=== PATIENT | female | born 1930 | race Caucasian/White ===

== ENCOUNTER 2018-01-04 10:19 | Outpatient (CLI) | payer OTHER, BC ==
[2018-01-04] MEDS ORDERED: DOBUTamine 500 MG in D5W 250 ML IV ONE (11:00)
[2018-01-04] MEDS ORDERED: NS 1,000 ML IV ONE (11:00)
--- NOTE | 2018-01-04 12:25 | ECHO ---
[email or web address] [address] [address] Main: [phone] Fax: Transthoracic Echocardiogram Name: HIRO STEPHENS MR#: [id number] Study Date: 01/04/2018 Study Time: 11:17 AM Date of : 1930 Age: 87 year(s) Height: 168 cm (66.14 in.) Weight: 73 kg (160.94 lb.) BSA: 1.83 m2 Gender: Female Examination: DSE Indication: Eval aortic stenosis Image Quality: Contrast: Requested by: Ruben Martinez BP: 123 mmHg/70 mmHg Heart Rate: Rhythm: Indication: Eval aortic stenosis Procedure Staff Track Repairer: Ivonne Bustamante RDCS Reading Physician: Ruben Martinez MD Requesting Provider: Conclusions: This is a modified dobutamine stress echo. Baseline - AV max PG 38mmHG AV mean PG 21mmHG. NA .87 cm2. End of 20 MCG - AV max PG 67mmHG AV mean PG 38mmHG. Test was terminated at the beginning of 30 MCG. Baseline ECG NSR--increase in HR from 60 bpm to 84 bpm with infusion. No ST changes or CP during test. . Measurements: Chambers Valvular Assessment AV/MV Valvular Assessment TV/PV Normal Normal Normal Name Value Range Name Value Range Name Value Range LVOTd 1.9 cm 1.9 cm mm AV meanP mmHg ( - ) NA (VTI): 0.8 cm ( - ) Continued Measurements: Findings: Exam Comments: This is a modified dobutamine stress echo. Baseline - AV max PG 38mmHG AV mean PG 21mmHG. NA .87 cm2. End of 20 MCG - AV max PG 67mmHG AV mean PG 38mmHG. Test was terminated at the beginning of 30 MCG. Baseline ECG NSR--increase in HR from 60 bpm to 84 bpm with infusion. No ST changes or CP during test. . (No Signature Object) Patient: HIRO STEPHENS Study Date: 01/04/2018 Page 1 of 1 11:17 AM [id number]
== END 2018-01-04 13:18 | disposition home or self-care (01) ==
LOC: FCATH 10:19
PROVIDERS: ATTEND Internal Medicine Cardiovascular Disease
DX: I35.0 Nonrheumatic aortic (valve) stenosis (principal); I10 Essential (primary) hypertension
CPT/HCPCS: 93351; J1250

== ENCOUNTER 2018-01-10 10:06 | Day surgery (SDC) | payer OTHER, BC ==
[2018-01-10] MEDS ORDERED: DIAZEPAM 5 MG TAB PO ONE (10:08)
[2018-01-10] MEDS ORDERED: NS 1,000 ML IV ONE (10:08)
[2018-01-10] MEDS ORDERED: diphenhydrAMINE 25 MG CAP PO ONE (10:08)
[2018-01-10] MEDS ORDERED: FAMOTIDINE 20 MG TAB PO ONE (10:08)
[2018-01-10] MEDS ORDERED: ASPIRIN EC 325 MG TAB PO ONE (10:08)
[2018-01-10] MEDS ORDERED: CLOPIDOGREL BISULFATE 75 MG TAB PO ONE (11:00)
--- NOTE | 2018-01-10 11:01 | PDHPUP ---
History & Physical Update H&P update statement: This history and physical update is based on an assessment of the patient which was completed after admission or registration (within 24 hours), but prior to the surgery/procedure. H&P update: H&P reviewed & patient examined, no change in patient's condition since H&P completed
--- NOTE | 2018-01-10 11:01 | PDPROPOC ---
Sedation Plan of Care Sedation Plan of Care: mental status noted, patient educated of risks, benefits , alternatives, patient can tolerate sedation ASA Classification: ASA 2 Planned drugs: fentanyl, midazolam Mallampati Score: Class 2 Mallampati Reference Image: Patient passed 3-3-2 rule?: Yes
[2018-01-10 11:14] LABS: PLATELET COUNT 291 10^3/uL (150-400)
[2018-01-10 11:15] LABS: INR 0.97 (0.83-1.16); PROTIME(PATIENT) 13.1 SEC (12.0-15.0)
--- NOTE | 2018-01-10 11:17 | GCON ---
DATE OF CONSULTATION: 01/10/2018 REFERRING PHYSICIAN: Ruben Martinez MD The patient is seen at the request of Dr. Martinez with the patient's permission. IMPRESSION: 1. Critical symptomatic aortic stenosis. 2. Mild dementia. 3. Frailty. 4. Hypothyroidism. 5. Hyperlipidemia. 6. Obesity. 7. Osteopenia. RECOMMENDATIONS: This patient would be better served with TAVR given her age and comorbidities. I d o think she would have a difficult time recovering from surgical intervention due to her age, frail n ature, and mild memory loss, which would be markedly worsened in the perioperative period. I did dis cuss with the family that in the rare circumstances that a catastrophic event occurs during TAVR plac ement that the resolution is often cardiopulmonary bypass and often times sternotomy with repair and replacement of the disruption and valve replacement. They are uncertain whether they would allow roman t and would discuss it and let us know prior to intervention. CHIEF COMPLAINT: Worsening shortness of breath. HISTORY OF PRESENT ILLNESS: This very pleasant 87-year-old female presents with worsening dyspnea on exertion to the point that she is incapable of participating in any family functions, including walk ing or shopping with her daughter. This began at least a year ago and has progressed most recently t o the point that she is extremely limited with any activity. PAST MEDICAL HISTORY: As stated. PAST SURGICAL HISTORY: Surgeries, include cervical fusion and wisdom teeth removal. MEDICATIONS: Aspirin, calcium, Cytomel, fluoxetine, hydrochlorothiazide, lithium carbonate, magnesiu m glycinate, memantine, Synthroid, and vitamin D. ALLERGIES: Sulfa, no action listed. FAMILY HISTORY: Noncontributory. SOCIAL HISTORY: She has no significant known lung disease and only smoked up until her 20s at which time, she discontinued. DATA: Pulmonary function studies from outside were reviewed with an FEV1 of 63%. PHYSICAL EXAMINATION: GENERAL: This is a mildly overweight elderly female accompanied by her daught er. Very pleasant or oriented to person, place, and time. HEENT: Normocephalic. ALEXANDER. NECK: Ca rotid have soft bruits bilaterally which are transmitted. HEART: Regular with a murmur of aortic st enosis. LUNGS: Clear. ABDOMEN: Soft, nontender. Bowel sounds are active. EXTREMITIES: Femoral pulses are 2+. She has no edema. No varicosities. /[id number]/MODL
[2018-01-10] MEDS ORDERED: MIDAZOLAM 2 MG/2 ML VIAL ONE (12:42)
[2018-01-10] MEDS ORDERED: fentaNYL 100 MCG/2 ML INJ ONE (12:42)
[2018-01-10] MEDS ORDERED: LIDOCAINE 1% 300 MG/30 ML SDV ONE (12:42)
[2018-01-10] MEDS ORDERED: IOPAMIDOL (ISOVUE-370) 150 ML BTL IV ONE (12:43)
[2018-01-10] MEDS ORDERED: HYDROCODONE/APAP 5/325 TAB PO PRN (13:50)
[2018-01-10] MEDS ORDERED: NITROGLYCERIN 0.4 MG BTL SL PRN (13:50)
[2018-01-10] MEDS ORDERED: ATROPINE SULFATE 1 MG/10 ML SYR IVP PRN (13:50)
[2018-01-10] MEDS ORDERED: ONDANSETRON 4 MG/2 ML VIAL IVP PRN (13:50)
[2018-01-10] MEDS ORDERED: OXYCODONE/APAP 5/325 TAB PO PRN (13:50)
--- NOTE | 2018-01-10 15:38 | CPIP ---
DATE OF PROCEDURE: 01/10/2018 INDICATION FOR PROCEDURE: Critical aortic stenosis. Preoperative TAVR. PROCEDURE: 1. left groin sheathogram. 2. 7-[place] sheath left common femoral vein. 3. Right heart catheterization with [place] catheter. 4. Bilateral coronary angiography. 5. Left heart catheterization. 6. Left . 7. Abdominal aortogram. Briefly, this is an 87-year-old female with history of worsening shortness of breath, lightheadedness . The patient had noninvasive evidence of high-grade aortic stenosis. The patient's aortic valve ar ea was measured to be approximately 0.8 cm2 . However, her gradients were only moderate. She underw ent dobutamine stress echo which clearly showed increase in her gradient across the valve to a peak v elocity of over 4.0. Given these findings, patient consented for right and left heart catheterizatio n in anticipation for eventual TAVR. She has seen Dr. Desean Eason from CT surgery who deemed her to be a suitable candidate for TAVR and a high-risk candidate for open heart surgery. DESCRIPTION OF PROCEDURE: After informed consent was obtained, the patient was brought to [facility] where the left groin was prepped and draped in sterile fashion. Using lidocaine, a short 6-[place] sheath l eft common femoral vein. A 6-[place]imbabwe[place] sheath left common femoral artery verified angiographically. Th rough the 7-[place] sheath a [place] catheter was advanced. Wedge pressure was mean of 15, A-wave 1 7, V-wave 17, PA pressure systolic 20, diastolic 16, mean of 21. RV pressure systolic 34, diastolic 3, end of 11. RA pressure mean of 7, A-wave 10, V-wave 8. Cardiac output by Marisa was measured to be 3.5 with index of 1.9, indicating low output. AO sat was 99%. PA sat was 76%. [place] catheter was then removed. A JL4 catheter was advanced to the left coronary artery. With the JL4 catheter im ages of the left coronary artery revealed . Angiography of the left coronary artery showed long left main, serpiginous takeoff of the circumflex and LAD. The LAD did not have any significant disease. New to the circumflex artery, which was serpiginous as well, did not have any significant disease. There was a small to medium diagonal coming off the LAD which was healthy and free of disea se. There were small marginal arteries coming off the circumflex proper, which were healthy and free of disease. obtained the JL4 catheter was removed. The JR4 catheter was advanced to the right coronary artery. Images of the right coronary artery revealed mild plaque 20% to 30% in the proximal RCA. Distally, the appeared to be widely patent and free of disease. After ____ obtained, the JR4 catheter was removed. The pigtail catheter was then advanced and with some excessive manipulation this was successful in entering the LV. Of note, there was an approximately 4 0 mm gradient from the LV aorta. Left ventriculogram obtained in the showed EF of 60% with no wall motion abnormalities. There was approximately a 40 mm gradient pullback from th e LV to the aorta. The pigtail catheter was pulled back to the descending aorta where abdominal aort ogram was obtained which showed widely patent distal ascending aorta, widely patent bilateral common external and internal iliac arteries and widely patent bilateral CFAs. At this time the pigtail cath eter removed wire. groin was closed with Angio-Seal and left femoral vein was closed with manual pressure. Patient tolerated the procedure well with no complications. IMPRESSION: 1. Mild nonobstructive bilateral coronary artery disease. 2. Normal pulmonic pressures. 3. Reduced cardiac output. 4. Significant gradient across the aortic valve indicating underlying stenosis. 5. Widely patent aortoiliac conduit. PLAN: The patient will have 3 hours bed rest, obtain CT of the chest, abdomen and pelvis today, as w ell as carotid ultrasound. Follow up in the office in 1 weeks' time to discuss future movement ishan dietz obtaining a TAVR in the future. /[id number]/MODL
[2018-01-10] MEDS ORDERED: IOPAMIDOL (ISOVUE 370) 100 ML BTL IV ONE (16:33)
--- NOTE | 2018-01-11 08:39 | CPEKG ---
Test Reason : OPEN Blood Pressure : / mmHG Vent. Rate : 065 BPM Atrial Rate : 066 BPM P-R Int : 160 ms QRS Dur : 083 ms QT Int : 452 ms P-R-T Axes : 079 036 077 degrees QTc Int : [address] depr, anterior leads probable artifact Confirmed by Chaim Escalona ([id number]) on 01/11/2018 8:38:57 AM Referred By: Confirmed By:Chaim Escalona
== END 2018-01-10 17:30 | disposition home or self-care (01) ==
LOC: FCATH 10:06
PROVIDERS: ATTEND Internal Medicine Cardiovascular Disease
PROC: B2151ZZ Fluoroscopy of Left Heart using Low Osmolar Contrast (ICD-10-PCS; principal; 2018-01-10)
PROC: 4A023N8 Measurement of Cardiac Sampling and Pressure, Bilateral, Percutaneous Approach (ICD-10-PCS; principal; 2018-01-10)
PROC: B2111ZZ Fluoroscopy of Multiple Coronary Arteries using Low Osmolar Contrast (ICD-10-PCS; principal; 2018-01-10)
PROC: B4101ZZ Fluoroscopy of Abdominal Aorta using Low Osmolar Contrast (ICD-10-PCS; principal; 2018-01-10)
DX: I35.0 Nonrheumatic aortic (valve) stenosis (principal); I10 Essential (primary) hypertension; F03.90 Unspecified dementia, unspecified severity, without behavioral disturbance, psychotic disturbance, mood disturbance, and anxiety; E78.5 Hyperlipidemia, unspecified; E03.9 Hypothyroidism, unspecified; E66.9 Obesity, unspecified; M85.89 Other specified disorders of bone density and structure, multiple sites; Z82.49 Family history of ischemic heart disease and other diseases of the circulatory system; Z98.1 Arthrodesis status
CPT/HCPCS: C1760; J1644; J2250; J3010; Q9967

== ENCOUNTER 2018-02-07 06:12 | Inpatient (IN) | payer OTHER, BC ==
[2018-02-07] MEDS ORDERED: PROPOFOL/EMULSION 500 MG/50 ML BOTTLE IV ONE (06:58)
[2018-02-07] MEDS ORDERED: LIDOCAINE 1% 300 MG/30 ML SDV ONE (07:00)
[2018-02-07] MEDS ORDERED: fentaNYL 100 MCG/2 ML INJ ONE ×2 (07:00→07:27)
[2018-02-07] MEDS ORDERED: IOPAMIDOL (ISOVUE-370) 150 ML BTL IV ONE (07:00)
[2018-02-07] MEDS ORDERED: ceFAZolin 2 GM/DEXTROSE 100 ML IV ONE (07:00)
[2018-02-07] MEDS ORDERED: DEXMEDETOMIDINE HCL 400 MCG in NS 100 ML IV ONE (07:30)
[2018-02-07] MEDS ORDERED: PROTAMINE SULFATE 50 MG/5 ML VIAL IVP ONE (09:02)
[2018-02-07] MEDS ORDERED: ePHEDrine SULFATE 25 MG/5 ML SYR ONE (09:04)
[2018-02-07] MEDS ORDERED: PHENYLEPHRINE HCL 100 MCG/ML SYR ONE (09:04)
--- NOTE | 2018-02-07 09:20 | PDPROPOC ---
Sedation Plan of Care Sedation Plan of Care: mental status noted, patient educated of risks, benefits , alternatives, patient can tolerate sedation ASA Classification: ASA 2 Planned drugs: other Mallampati Score: Class 2 Mallampati Reference Image: Patient passed 3-3-2 rule?: Yes
[2018-02-07] MEDS ORDERED: hydrALAZINE 20 MG/ML VIAL IVP PRN (09:22)
[2018-02-07] MEDS ORDERED: ONDANSETRON 4 MG/2 ML VIAL IVP PRN (09:22)
[2018-02-07] MEDS ORDERED: oxyCODONE IR 5 MG TAB PO PRN (09:22)
[2018-02-07] MEDS ORDERED: ATROPINE SULFATE 1 MG/10 ML SYR IVP PRN (09:22)
[2018-02-07] MEDS ORDERED: HYDROmorphONE/DILAUDID 1 MG/ML INJ IVP PRN (09:22)
[2018-02-07] MEDS ORDERED: IBUPROFEN 800 MG TAB PO PRN (09:22)
[2018-02-07] MEDS ORDERED: ONDANSETRON DISINTEGRATING 4 MG TAB PO PRN (09:22)
[2018-02-07] MEDS ORDERED: ALBUTEROL 60 PUFFS/8 GM MDI IH PRN (09:23)
--- NOTE | 2018-02-07 09:41 | PDANEPAE ---
ANE History of Present Illness pr op note done earlier but not saved 87 yo for tavr ANE Past Medical History - Cardiovascular History Hx Hypertension: Yes Hx Arrhythmias: Yes Hx Chest Pain: No Hx Coronary Artery / Peripheral Vascular Disease: No Hx CHF / Valvular Disease: Yes Hx Palpitations: No - Pulmonary History Hx COPD: No Hx Asthma/Reactive Airway Disease: No Hx Recent Upper Respiratory Infection: No Hx Oxygen in Use at Home: No Hx Sleep Apnea: No - Endocrine History Hx Diabetes: No - Chronic Pain History Chronic Pain: No ANE Review of Systems Review of Systems: - Exercise capacity METS (RN): 2 METS ANE Patient History - Allergies Allergies/Adverse Reactions: Sulfa (Sulfonamide Antibiotics) Allergy (Verified 01/13/14 22:37) - Home Medications Home medications: home medication list seen and reviewed Home Medications: Aspirin [Aspirin 81mg (*)] 81 mg PO DAILY@12 03/14/14 [Last Taken 01/03/18 12:00 ] Levothyroxine [Synthroid 50 mcg (*)] 50 mcg PO DAILY 03/14/14 [Last Taken 08:00] Liothyronine Sodium [Cytomel 5 mcg (*)] 5 mcg PO DAILY 03/14/14 [Last Taken 08/18 08:00] FLUoxetine [Prozac 10 MG (*)] 10 mg PO DAILY@01/04/18 [Last Taken 01/03/18 12 :00] Herbals/Supplements -Info Only 1 ea PO DAILY 01/04/18 [Last Taken 01/03/18 20:00 ] Hydrochlorothiazide [HCTZ (*)] 12.5 mg PO DAILY@12 01/04/18 [Last Taken 12:00] [place] Carbonate 150 mg PO HS 01/04/18 [Last Taken 01/03/18 20:00] Memantine HCl [Memantine HCl ER] 14 mg PO HS 01/04/18 [Last Taken 01/03/18 20:00 ] Methenamine Mandelate [METHENAMINE MANDELATE] 500 mg PO BID@,01/04/18 [ Last Taken 01/03/18 20:00] Albuterol [Proventil Inhaler HFA (*)] 1 puffs IH DAILY PRN 02/02/18 [Last Taken Unknown] Cholecalciferol Vit D3 [Vitamin D3 (*)] 1,000 units PO DAILY@02/02/18 [Last Taken Unknown] FLUoxetine [Prozac 20 MG (*)] 20 mg PO DAILY@02/02/18 [Last Taken Unknown] - NPO status NPO Status: no food or drink >8 hours - Smoking Hx Smoking Status: Former smoker ANE Labs/Vital Signs - Vital Signs Height: 5 ft 4.96 in Weight: 72.6 kg ANE Physical Exam - Airway Mallampati Score: Class 2 Mouth exam: normal dental/mouth exam - Pulmonary Pulmonary: no respiratory distress - Cardiovascular Cardiovascular: regular rate and rhythym - ASA Status ASA Status: III ANE Anesthesia Plan Anesthesia Plan: MAC Lines/Monitors: central line
--- NOTE | 2018-02-07 10:31 | CPIP ---
DATE OF PROCEDURE: 02/07/2018 INDICATION FOR PROCEDURE: Severe symptomatic aortic stenosis. CO-SURGEONS: Dr. Desean Eason, Dr. Jerry Sellers, Dr. Deborah Whatley. PROCEDURES: 1. Nonselective left groin sheathogram. 2. Nonselective right groin sheathogram. 3. Upsizing 6-[place] sheath to a 16-[place] Medtronic sheath. 4. Aortic root angiography. 5. Left heart catheterization. 6. Placement of Medtronic CoreValve Evolut Pro 26 mm valve by the transfemoral. Briefly, this is an 87-year-old female with history of critical symptomatic aortic stenosi s deemed suitable for TAVR by [address] surgeons. Patient did undergo dobutamine stress echo as the patient did have evidence of low output low gradient severe . DESCRIPTION OF PROCEDURE: After informed consent was obtained, the patient was brought to [facility] where the patient underwent MAC anesthesia. The patient had an IJ temporary pacemaker line placed. The sh eath was placed in the right common femoral artery verified angiographically. Sheath placed in the l eft common femoral artery verified angiographically. The sheath in the right groin was upsized to a 16-[place] central sheath after placement of double Perclose placements and a Lunderquist wire placed in the descending aorta. The valve was crossed catheter straight stiff Glidewire and swit ched out for a pigtail catheter. Of note, the patient did have transient ST elevations once the pigt ail did cross the LV, most likely from entrained air in the catheter. This normalized after 2 minute s with no clinical sequela. wire was placed in the LV. Patient administered a total of 1 0,000 of heparin. A pigtail catheter was placed from the left groin to the left coronary cusp. We t hen proceeded with placement of a Medtronic CoreValve Evolut Pro 26 mm valve via the transfemoral rou te. This was placed successfully. Post deployment, there was trivial perivalvular leak noted with e xcellent hemodynamics. The wire was then removed. The pigtail catheter was removed. The right groi n was closed with double Perclose, left groin closed with 8-[place]izen [place] Angio-Seal. The patient tolerated the procedure well with no complications. IMPRESSION: Successful placement of Medtronic Evolut Pro 26 mm valve via the transfemoral route. PLAN: The patient will be admitted to PCU. Further orders following clinical course. The temporary pacemaker wire will be removed in approximately 3 hours' time if no pacing is required. /[id number]/MODL
[2018-02-07] MEDS: ACETAMINOPHEN 325 MG TAB PO SCH ×3 (14:13→23:10)
[2018-02-07] MEDS: METHENAMINE HIPP 1 GM TAB PO SCH ×2 (14:14→20:31)
[2018-02-07] MEDS: ASPIRIN 81 MG CHEWABLE TAB PO SCH (14:14)
[2018-02-07] MEDS: HYDROCHLOROTHIAZIDE 12.5 MG CAP PO SCH (14:14)
[2018-02-07] MEDS: FLUoxetine 10 MG CAP PO SCH (14:15)
[2018-02-07] MEDS: CHOLECALCIFEROL VIT D3 1,000 UNITS TAB PO SCH (14:15)
[2018-02-07] MEDS: FLUoxetine 20 MG CAP PO SCH (14:15)
[2018-02-07] MEDS: LITHIUM CARBONATE 300 MG TAB PO SCH ×2 (14:17→20:30)
--- NOTE | 2018-02-07 14:40 | POSTANESTH ---
Post Anesthetic Evaluation Cardiovascular Status: Other, See Comment Respiratory Status: Normal, Stable Level of Consciousness/Mental Status: Can Participate in Eval Pain Control: Adequate, Prn Tx Ordered Nausea/Vomiting Control: Adequate, Prn Tx Ordered Complications Possibly Related to Anesthesia: None Noted (third degree hrt blk, awaiting pacemaker)
--- NOTE | 2018-02-07 18:18 | ECHO ---
[email or web address] [address] [address] Main: [phone] Fax: Transthoracic Echocardiogram Name: HIRO STEPHENS MR#: [id number] Study Date: 02/07/2018 Study Time: 06:53 AM Date of : 1930 Age: 87 year(s) Height: 167.6 cm (66 in.) Weight: 81.65 kg (180 lb.) BSA: 1.91 m2 Gender: Female Examination: Limited Echo Indication: limited TTE during TAVR procedure Image Quality: Adequate Contrast: Requested by: Ruben Martinez BP: 147 mmHg/75 mmHg Heart Rate: Rhythm: Indication: limited TTE during TAVR procedure Procedure Staff Hander In: Leila Cid [facility] Reading Physician: Deborah Whatley MD Requesting Provider: Ruben Martinez Conclusions: Normal global systolic LV function. No regional wall motion abnormality. Successful TAVR implantation with a normal device position trivial to mild residual aortic regurgitation no pericardial effusion. Measurements: Chambers Valvular Assessment AV/MV Valvular Assessment TV/PV Normal Normal Normal Name Value Range Name Value Range Name Value Range LVOTd 1.9 cm 1.9 cm mm Continued Measurements: Findings: Left Ventricle: Normal global systolic LV function. No regional wall motion abnormality. Exam Comments: Pre TAVR AV 3.1 m/s 23mmHg mean NDSI = .30 NA=.88 Triv- Mild AI, MOD MR, no pericardial effusion Post TAVR AV 1.1m/s 3mmHg mean NDSI = .80 NA 2.3 Triv-mild AI, mild-mod MR no pericardial effusion. (No Signature Object) Patient: HIRO STEPHENS Study Date: 02/07/2018 Page 1 of 1 06:53 AM [id number]
[2018-02-07] MEDS: MEMANTINE HCL 14 MG PO SCH (20:36)
--- NOTE | 2018-02-08 05:08 | PDMN ---
Medical Necessity Medical necessity: [place] IP only, TAVR; [facility] S1320 Aortic Valve Replacement
[2018-02-08] MEDS: ACETAMINOPHEN 325 MG TAB PO SCH ×3 (05:16→18:46)
[2018-02-08 05:42] LABS: PLATELET COUNT 187 10^3/uL (150-400)
[2018-02-08 05:50] LABS: INR 0.96 (0.83-1.16)
--- NOTE | 2018-02-08 07:06 | PDCARPN ---
Cardiology Progress Note Chief Complaint: SOB Assessment/Plan: Assessment: s/p TAVR Plan: 02/08/18 07:06 doing well transfer to PCU OOB IS check echo Subjective: doing well Reviewed/Discussed With: multidisciplinary team Time Spent with Patient: greater than 25 minutes Time Spent with Patient: Greater than 25 minutes spent on this patients care, greater than 50% of time spent counseling, educating, and coordinating care regarding the above mentioned plan. Objective: Vital Signs (8 Hrs) Temp Pulse Resp BP Pulse Ox 02/08/18 04:00 36.7 C 72 16 151/45 H 94 02/07/18 23:15 36.9 C 78 18 137/49 H 96 Intake/Output (24 Hrs) 02/07/18 02/08/18 02/09/18 05:59 05:59 05:59 Intake Total 1700 Output Total 1200 Balance 500 Intake: Oral (ml) 1000 IV Intake (ml) 700 Output: Urine (ml) 1200 Bedside Commode 600 Toilet 600 Other: Weight 72.6 kg Intake Quantity Yes Sufficient Number of Voids Toilet 3 Number of Stools Toilet 1 Result Diagrams: 02/08/18 05:30 02/08/18 05:30 - Physical Exam Constitutional: healthy appearing Eyes: PERRL Ears, Nose, Mouth, Throat: moist mucous membranes Cardiovascular: regular rate and rhythm Peripheral Pulses: 1+: femoral (R), femoral (L) Respiratory: clear to auscultate bilat Gastrointestinal: normoactive bowel sounds Genitourinary: no suprapubic tenderness Skin: no rashes Musculoskeletal: no muscular tenderness Neurologic: AAOx3 ICD10 Worksheet Patient Problems: Problems Problem Status Onset Vaginal prolapse Acute
[2018-02-08] MEDS: LIOTHYRONINE SODIUM 5 MCG TAB PO SCH (08:55)
[2018-02-08] MEDS: LEVOTHYROXINE 50 MCG TAB PO SCH (08:55)
[2018-02-08] MEDS ORDERED: Herbals/Supplements -Info Only PO SCH (09:00)
--- NOTE | 2018-02-08 09:34 | ASMTCMCOM ---
CM Note CM Note Notes: 87yr old female admitted for Aortic stenosis, Dizziness, Dyspnea, HTN, Dementia. She has a Hx of Situational depression. Patient had a TAVR procedure. Patient lives with her daughter. CM not anticipating that patient will have discharge needs. Date Signed: 02/08/2018 09:33 AM Electronically Signed By:Fabi Mcmahon LCSW
--- NOTE | 2018-02-08 12:50 | ECHO ---
[email or web address] [address] [address] Main: [phone] Fax: Transthoracic Echocardiogram Name: HIRO STEPHENS MR#: [id number] Study Date: 02/08/2018 Study Time: 07:39 AM Date of : 1930 Age: 87 year(s) Height: 162.6 cm (64 in.) Weight: 72.58 kg (160 lb.) BSA: 1.78 m2 Gender: Female Examination: Echo Indication: Post TAVR Image Quality: Contrast: Requested by: Ruben Martinez BP: 117 mmHg/52 mmHg Heart Rate: Rhythm: Indication: Post TAVR Procedure Staff Management Supervisor: Adam Barnes RDCS Reading Physician: Ruben Martinez MD Requesting Provider: Conclusions: Global hypercontractility of the left ventricle. EF is 76 %. Trivial mitral valve regurgitation. Successful implantation of Corevalve in the aortic position. Post procedure the PVL is trace. There is no compromise of Mitral Valve. Preserved LV function. No evidence of a pericardial effusion.. Trivial tricuspid valve regurgitation. The pulmonary artery pressure is normal. Measurements: Chambers Valvular Assessment AV/MV Valvular Assessment TV/PV Normal Normal Normal Name Value Range Name Value Range Name Value Range Ao Licha (MM): 1.8 cm (2.2 cm-3.7 AV Vmax: 1.49 m/s (1 m/s-1.7 TR Vmax: 2.66 mm/s ( - ) cm) m/s) TR PGmax: 28 mmHg ( - ) IVSd (2D): 0.8 cm (0.6 cm-1.1 AV maxP mmHg ( - ) syst. PAP: 33 mmHg ( - ) cm) AV meanP mmHg ( - ) PV Vmax: 0.95 m/s (0.6 m/s-0.9 LVDd (2D): 3.9 cm (3.9 cm-5.3 LVOT Vmax: 0.96 m/s (0.7 m/s-1.1 m/s) cm) m/s) PV PGmax: 4 mmHg ( - ) LVDs (2D): 2.2 cm (2.1 cm-4 NA (Vmax): 1.8 cm2 ( - ) cm) NA (VTI): 2.2 cm ( - ) LVPWd (2D): 0.9 cm ( - ) AR (PHT): 689 ms ( - ) LVOTd 1.9 cm 1.9 cm mm MV E Vmax: 0.83 m/s ( - ) LVEF (2D): 76 (>=54 %) MV A Vmax: 1.04 m/s ( - ) MV E/A: 0.80 ( - ) MV meanP mmHg ( - ) MVA (Vmax): 2.6 m/s ( - ) Continued Measurements: Chambers Valvular Assessment AV/MV Valvular Assessment TV/PV Patient: HIRO STEPHENS Study Date: 02/08/2018 Page 1 of 2 07:39 AM Name Value Name Value Name Value LADs Lon.4 cm MV E' Septal: 0.05 m/s CVP (est.): 5 mmHg LA Area: 18.4 cm2 MV E/E' Septal: 17.00 MV VTI: 30.20 cm AR Vmax: 3.86 cm/s Findings: Left Ventricle: Normal size left ventricle. No LV hypertrophy. Global hypercontractility of the left ventricle. EF is 76 %. No regional wall motion abnormality. Diastolic dysfunction is present. . Right Ventricle: Normal size right ventricle. Normal RV function. Left Atrium: The left atrium is normal in size. Right Atrium: The right atrium is normal in size. Mitral Valve: Mild mitral valve leaflet calcification is present. Trivial mitral valve regurgitation. Aortic Valve: Successful implantation of Corevalve in the aortic position. Post procedure the PVL is trace. There is no compromise of Mitral Valve. Preserved LV function. No evidence of a pericardial effusion.. Tricuspid Valve: The tricuspid valve appears normal. Trivial tricuspid valve regurgitation. The pulmonary artery pressure is normal. Pulmonic Valve: The pulmonic valve is normal in appearance and function. Aorta: The aorta is normal. Pericardium: No pericardial effusion. (No Signature Object) Patient: HIRO STEPHENS Study Date: 02/08/2018 Page 2 of 2 07:39 AM [id number]
[2018-02-08] MEDS: HYDROCHLOROTHIAZIDE 12.5 MG CAP PO SCH (14:30)
[2018-02-08] MEDS: CHOLECALCIFEROL VIT D3 1,000 UNITS TAB PO SCH (14:31)
[2018-02-08] MEDS: ASPIRIN 81 MG CHEWABLE TAB PO SCH (14:31)
[2018-02-08] MEDS: FLUoxetine 20 MG CAP PO SCH (14:31)
--- NOTE | 2018-02-08 15:35 | ASMTCMCOM ---
CM Note CM Note Notes: Gave daughter Sr Res Book for [facility] and Private Duty providers. She is interested in [facility] for patient. She is next in line to be admitted, but will return to the [facility] with Private Duty assist until then. Date Signed: 02/08/2018 03:34 PM Electronically Signed By:Fabi Mcmahon LCSW
--- NOTE | 2018-02-08 16:51 | CPEKG ---
Test Reason : OPEN Blood Pressure : / mmHG Vent. Rate : 069 BPM Atrial Rate : 067 BPM P-R Int : 174 ms QRS Dur : 120 ms QT Int : 450 ms P-R-T Axes : 101 003 140 degrees QTc Int : 482 ms Sinus rhythm LVH with secondary repolarization abnormality Anterior infarct, old Confirmed by Good Berrios ([id number]) on 02/08/2018 4:50:14 PM Referred By: Confirmed By:Good Berrios
[2018-02-08] MEDS: FLUoxetine 10 MG CAP PO SCH (18:45)
[2018-02-08] MEDS: METHENAMINE HIPP 1 GM TAB PO SCH ×2 (18:45→20:16)
[2018-02-08] MEDS: LITHIUM CARBONATE 300 MG TAB PO SCH (20:17)
[2018-02-08] MEDS: MEMANTINE HCL 14 MG PO SCH (20:18)
[2018-02-09] MEDS: ACETAMINOPHEN 325 MG TAB PO SCH ×2 (02:43→06:21)
[2018-02-09 04:11] LABS: PLATELET COUNT 193 10^3/uL (150-400)
[2018-02-09 04:19] LABS: INR 1.02 (0.83-1.16); PROTIME(PATIENT) 13.6 SEC (12.0-15.0)
--- NOTE | 2018-02-09 06:51 | PDCARPN ---
Cardiology Progress Note Chief Complaint: SOB Assessment/Plan: Assessment: s/p TAVR Plan: 02/08/18 07:06 doing well transfer to PCU OOB IS check echo 02/09/18 06:48 doing well OOB d/c home f/u next week Subjective: doing well Reviewed/Discussed With: multidisciplinary team Time Spent with Patient: greater than 25 minutes Time Spent with Patient: Greater than 25 minutes spent on this patients care, greater than 50% of time spent counseling, educating, and coordinating care regarding the above mentioned plan. Objective: Vital Signs (8 Hrs) Temp Pulse Resp BP Pulse Ox 02/09/18 03:52 36.9 C 68 16 147/75 H 94 02/08/18 23:28 36.6 C 69 16 128/70 H 96 Intake/Output (24 Hrs) 02/08/18 02/09/18 02/10/18 05:59 05:59 05:59 Intake Total 1700 880 Output Total 1200 Balance 500 880 Intake: Oral (ml) 1000 880 IV Intake (ml) 700 Output: Urine (ml) 1200 Bedside Commode 600 Toilet 600 Other: Weight 72.6 kg Intake Quantity Yes Sufficient Number of Voids Toilet 3 3 Number of Stools Toilet 1 1 Result Diagrams: 02/09/18 03:17 02/09/18 03:17 - Physical Exam Constitutional: healthy appearing Eyes: PERRL Ears, Nose, Mouth, Throat: moist mucous membranes Cardiovascular: regular rate and rhythm Peripheral Pulses: 1+: femoral (R), femoral (L) Respiratory: clear to auscultate bilat Gastrointestinal: normoactive bowel sounds Genitourinary: no suprapubic tenderness Skin: no rashes Musculoskeletal: no muscular tenderness Neurologic: AAOx3 Psychiatric: cooperative ICD10 Worksheet Patient Problems: Problems Problem Status Onset Vaginal prolapse Acute
--- NOTE | 2018-02-09 07:12 | GDS ---
DISCHARGE DIAGNOSIS: Aortic stenosis, transcatheter aortic valve replacement (TAVR). HOSPITAL COURSE: Briefly, this is an 87-year-old female who was admitted electively for transfemoral TAVR on 12/10/2017. The patient underwent successful placement of Medtronic CoreValve Evolut Pro 26 mm valve by the transfemoral route. Postprocedure, the patient has done quite well ambulating in [facility] halls without problems. The patient will be discharged home this morning with home medications. S he will follow up in the office in 1 week's time. /[id number]/MODL
[2018-02-09 07:58] VITALS: BP 146/73
[2018-02-09] MEDS: LEVOTHYROXINE 50 MCG TAB PO SCH (08:20)
[2018-02-09] MEDS: LIOTHYRONINE SODIUM 5 MCG TAB PO SCH (08:20)
--- NOTE | 2018-02-09 12:43 | ASMTLACE ---
LACE Length of stay for Answers: 2 days current admission Acuity / Level of Answers: Yes Care: Did the patient have an inpatient admission? Comorbidities - select Answers: Congestive heart failure all that apply Dementia Other Notes: HTN # of Emergency department Answers: 1-2 visits in the last 6 months Score: 12 Date Signed: 02/09/2018 12:42 PM Electronically Signed By:Torie Boland RN
--- NOTE | 2018-02-09 12:46 | ASMTDCNOTE ---
Case Management Discharge Discharge Order Complete? Answers: Yes Patient to Obtain Answers: Independently Medications Transportation Arranged Answers: Family/Friends Discharge Comments Notes: 02/09/2018 Case Management Note Pt discharged home with support from daughter Ashlyn [phone]. Evaluated by TAVR program director/traffic director and home care is not necessary at this time. Pt to follow up as directed. Daughter transported home. Date Signed: 02/09/2018 12:45 PM Electronically Signed By:Torie Boland RN
--- NOTE | 2018-02-09 12:46 | ASDISCHSUM ---
Discharge Information Plan Status:Home with No Needs Medically Cleared to Leave:02/09/2018 Discharge Date:02/09/2018 11:50 AM CM D/C Disposition:Home, Routine, Self-Care ADT D/C Disposition:Home, Routine, Self-Care Projected Discharge Date:02/09/2018 11:50 AM Transportation at D/C: Discharge Delay Reason: Follow-Up Date:02/09/2018 11:50 AM Discharge Slot: Final Diagnosis:Aortic stenosis, Dementia Placement Information Patient Contact Information Contact Name:CONCHITA Relationship:Daughter [address] [place] Alternate Phone: [facility]/Zip Code:[place] [address] Email: Financial Information Financial Class:Medicare Primary Plan Desc:MEDICARE INPATIENT Primary Plan Number:[id number] Secondary Plan Desc:[facility] Secondary Plan Number:[id number] Assessment Information LACE LACE Length of stay for Answers: 2 days current admission Acuity / Level of Answers: Yes Care: Did the patient have an inpatient admission? Comorbidities - select Answers: Congestive heart failure all that apply Dementia Other Notes: HTN # of Emergency department Answers: 1-2 visits in the last 6 months Score: 12 Date Signed: 02/09/2018 12:42 PM Electronically Signed By:Torie Boland RN [facility] CARMEL Progress Note CARMEL Kumar CM Note Notes: 87yr old female admitted for Aortic stenosis, Dizziness, Dyspnea, HTN, Dementia. She has a Hx of Situational depression. Patient had a TAVR procedure. Patient lives with her daughter. CARMEL not anticipating that patient will have discharge needs. Date Signed: 02/08/2018 09:33 AM Electronically Signed By:Fabi Mcmahon LCSW [facility] CM Progress Note CM Note CM Note Notes: Gave daughter Res Book for [facility] and Private Duty providers. She is interested in [place] [facility] for patient. She is next in line to be admitted, but will return to the [place] with Private Duty assist until then. Date Signed: 02/08/2018 03:34 PM Electronically Signed By:Fabi Mcmahon LCSW Case Management Discharge Plan Note Case Management Discharge Discharge Order Complete? Answers: Yes Patient to Obtain Answers: Independently Medications Transportation Arranged Answers: Family/Friends Discharge Comments Notes: 02/09/2018 Case Management Note Pt discharged home with support from daughter Ashlyn [phone]. Evaluated by TAVR edi programmer analyst and home care is not necessary at this time. Pt to follow up as directed. Daughter transported home. Date Signed: 02/09/2018 12:45 PM Electronically Signed By:Torie Boland RN Intervention Information Intervention Type:*IM-Signed Date of Service:02/09/2018 09:39 AM Patient Type:Inpatient Staff Member:Shanique Royal Hours: Discipline: Severity: Comment:
== END 2018-02-09 11:50 | disposition home or self-care (01) | DRG 267 ==
LOC: FCATH 06:12 → F2N 09:38 → F2W 02-08 11:34
PROVIDERS: ADMIT Internal Medicine Cardiovascular Disease; ATTEND Internal Medicine Cardiovascular Disease
PROC: 02RF38Z Replacement of Aortic Valve with Zooplastic Tissue, Percutaneous Approach (ICD-10-PCS; principal; 2018-02-07)
DX: I35.0 Nonrheumatic aortic (valve) stenosis (principal); Z00.6 Encounter for examination for normal comparison and control in clinical research program; I10 Essential (primary) hypertension
CPT/HCPCS: C1760; C1769; J0690; J1644; J2370; J2704; J2720; J3010; Q9967

== ENCOUNTER → 2018-03-09 | Outpatient (CLI) | payer OTHER, BC | LOC: BHFA 11:30 | PROVIDERS: ATTEND Internal Medicine Cardiovascular Disease | DX: I35.9 Nonrheumatic aortic valve disorder, unspecified (principal) ==

== ENCOUNTER → 2018-09-23 | Outpatient (CLI) | payer OTHER, BC ==
[~2018-09-23] MED LIST: IOPAMIDOL (ISOVUE-300) 100 ML BTL ONE
== END ==
LOC: FIMAGING 13:41
PROVIDERS: ATTEND Physician Assistant
DX: I26.99 Other pulmonary embolism without acute cor pulmonale (principal); R91.8 Other nonspecific abnormal finding of lung field
CPT/HCPCS: 71260; Q9967; 82565-PO